=== PATIENT | male | born 1955 | race Caucasian/White ===

== ENCOUNTER 2016-10-04 10:52 | Emergency (ER) | payer MEDICAID ==
[~2016-10-04] VITALS: Ht 175.3 cm; Wt 90.7 kg
[~2016-10-04 10:52] MED LIST: ALBUTEROL2 PUFFS/17 IN; AMLO5TAB PO; AMLODIPINE BES10 MG PO; AZITHROMYCIN250 MG PO; BENTYL20 MG PO; CARVEDILOL 25MG25 MG PO; CHEWABLE ASPIRI81 MG PO; CLINDAMYCIN HC300 MG PO; DIABETA2.5 M1 PO; DOXYCYCLINE100 M2 PO; FISH OIL1000 MG PO; FLUOXETINE 10MG10 MG PO; GABAPENTIN 600600 MG PO; HABITROL21 MG/24 H TD; HUMULIN 70/30 PE3 ML SC; HYDROCHLOROTH12.5 M1 PO; HYDROCHLOROTHIA25 M1 PO; HYDROCODONE-APA1 TA1 PO; HYDROCODONE1 TABLET PO; HYDROXYZINE HCL25 M1 PO; IBUPROFEN 600M600 MG PO; JANUMET 500 MG-1 TAB; LANSOPRAZOLE30 MG PO; LASIX 40MG. TAB40 MG PO; LISINOPRIL 10MG10 MG PO; LISINOPRIL 20MG20 MG PO; LORATADINE 10MG10 M1; LORTAB 5/500 501 TAB PO; LORTAB 500 MG-11 TAB PO; LOSARTAN POTASS50 MG PO; LYRICA25 MG; METFORMIN 500M500 MG PO; METOPROLOL TAR100 MG PO; MULTIVITAMIN1 TA1 PO; NIFEDIPINE XL 330 MG PO; OMEPRAZOLE40 MG PO; OMNICEF 300 MG300 MG PO; PREDNISONE 20MG20 MG PO; VERAPAMIL HCL120 M1 PO; VERAPAMIL HCL40 MG PO; VICODIN 5/500 T1 TAB PO; VOLTAREN75 MG PO; WALK1 XX; Zithromax500 MG PO; [UNRECOGNIZED DRUG - OTHER]; [UNRECOGNIZED DRUG - OTHER]
[2016-10-04] MEDS ORDERED: CETIRIZINE HCL10 MG PO (11:02)
[2016-10-04] MEDS ORDERED: HYDRALAZINE HCL25 M1 PO (11:02)
[2016-10-04] MEDS ORDERED: TAMSULOSIN HYD0.4 MG PO (11:02)
[2016-10-04] MEDS ORDERED: RANITIDINE HCL150 MG PO (11:02)
[2016-10-04] MEDS ORDERED: VERAPAMIL SR 2240 MG PO (11:03)
[2016-10-04 11:27] LABS: LYMPH % 25.7 % (10-50)
--- NOTE | 2016-10-04 11:38 | Emergency Room Report ---
History of Present Illness Time Seen by 1100 Presenting Problem in Triage Pt arrived:Walked Presenting Problem:PT C/O PAIN IN THE LOWER EXTREMITIES WITH COUGH AND SHARP PAINS WHEN HE COUGHS FOR A COUPLE OF WEEKS Onset of symptoms date/time:/ or onset unknown for:MEDICAL HX UNKNOWN Treatment Prior to Arrival: [employer] Provided by: Sepsis Risk Assessment: Temp: 98.7 B/P: 199/110 MAP: 139 Pulse: 82 Resp: 16 Recent fever? N Clinical Suspician of Infection? N Mental Status: 1 - Regular (Normal Baseline) Sepsis Risk:Low Sepsis Risk Have you (or family members/close friends) recently traveled outside the [place]? N If Yes, where/when: Have you had exposure to infectious disease within the past month? N TB? Other? Specify: Patient reports productive cough the last few days, feeling "hot". Also has chronic neuropathy with "pins and needles" sensation to legs and feet at night, already evaluated by foot and ankle clinic for this with no calf pain or swelling. No SOB today. Source patient, RN notes reviewed, family ALLERGIES Coded Allergies: Sulfa (Sulfonamide Antibiotics) (09/19/15) Home Medications Active Scripts LISINOPRIL (Lisinopril) 20 MG PO BID #60 TAB Prov: 09/19/15 Device (Walker, Standard) 1 UNIT XX UD #1 Prov: 09/19/15 Reported Medications Aspirin (Aspirin, Chewable) 81 MG PO DAILY NIFEDIPINE (Nifedipine ER) 30 MG PO BID Omeprazole (Omeprazole 40MG) 40 MG PO DAILY CETIRIZINE HCL (Cetirizine 10MG) 10 MG PO DAILY Hydralazine Hcl (Hydralazine 25MG Tab) 25 MG PO BID TAMSULOSIN HCL (Tamsulosin 0.4MG) 0.4 MG PO QHS Ranitidine Hcl (Ranitidine 150MG) 150 MG PO BID VERAPAMIL HCL (Verapamil ER) 240 MG PO DAILY Metoprolol Tartrate (Metoprolol 100MG) 100 MG PO BID Fluoxetine Hcl (Fluoxetine 10MG) 10 MG PO DAILY History Medical History General Angina: No NC: No Hypertension? Yes Hyperlipidemia? Yes CHF? No DVT? No PE? No COPD? Yes Asthma? No Anemia? No GERD? No Gastric ulcers? No GI Bleed? No Hernia? No Thyroid Problems? No Hypothyroidism? No CVA? No Seizures? No Diabetes? Yes Insulin Dependent: No Insulin Pump: No Home FSBS? No End Stage Renal Disease? No UTI? No Stones? No BPH? No GB Disease: Yes Nephritic Syndrome? No Asplenia? No Hepatitis? Yes Sickle Cell Disease? No Arthritis? No Migraines? No Cataracts? No Glaucoma? No MRSA? No HIV? No TB? No Depression? Yes Cancer? No More? No Additional hx: schizophrenia, Hepatitic C, past drug use, peripheral neuropathy, PVD Immunization Hx DT/Tetanus 1-4 Years Ago Flu [id number] Pneumonia Received In Past Surgical Hx Previous Surgery?Y Appendix Eye Procedures Oral Surgery NOSE SKIN ABSCESS PACEMAKER INSERTION Family History Family Hx Diabetes No CAD No Hypertension No Hyperlipidemia No Cancer No TB No Social History Smoking Hx Smoker: Current Every Day Smoker Tobacco: Yes Type Cigarettes Packs/day 1 1/2 - 2 Packs Alcohol Alcohol: No Review of Systems All Other Systems Reviewed and Negative Cardiovascular see HPI Psychiatric/Neurological no symptoms reported, pre-existing deficit Physical Exam Vital Signs Vital Signs Date Time Temp Pulse Resp B/P Pulse O2 O2 Flow FiO2 Ox Delivery Rate 10/04 1223 69 16 223/118 98 10/04 1147 70 16 224/118 98 10/04 1055 98.7 82 16 199/110 92 General Appearance normal appearance, WD/WN, no apparent distress Eye Exam - bilateral eye normal exam, bilateral eye PERRL, bilateral eye EOMI Neck normal inspection, non-tender, supple, full range of motion Respiratory Status Yes: trachea midline, chest symmetrical, non tender chest, productive cough. No : respiratory distress, tender on palpation, use of accessory muscles, pain on inspiration, pain on expiration, non productive cough. Lung Sounds bilateral: normal breath sounds, lungs clear, wheezing (very mild, end exp). left: wheezing (very mild, end exp). right: wheezing (very mild, end exp). Cardiovascular normal exam, regular rate/rhythm, no peripheral edema, no gallop, no JVD, no murmur, no rub, normal peripheral pulses Gastrointestinal normal bowel sounds, normal exam, non tender, soft, no organomegaly, no guarding, no rebound Extremities non-tender, normal range of motion, normal inspection, normal capillary refill, no calf tenderness (peripheral neuropathy) Neurologic alert, normal exam (peripheral neuropathy baseline), no motor/sensory deficits Glascow Coma Scale Glascow Coma Scale Response Value EYE response: 4 Spontaneously 4 MOTOR response: 6 OBEYS 6 VERBAL response: 5 Oriented & Converses 5 Total 15 Skin intact, normal color, warm/dry Lymphatic no adenopathy Medical Decision Making LABS/Meds/Orders Pt receiving controlled substance in ED? No Results/Orders Laboratory Tests 10/04/16 1110: Lactic Acid 0.6 10/04/16 1110: Sodium 134 L, Potassium 4.2, Chloride 102, Carbon Dioxide 28, BUN 27 H, Creatinine 2.2 H, Estimated Creat Clear 45 L, Estimated GFR (MDRD) 31, Glucose 150 H, Calcium 8.4 L, Total Bilirubin 0.4, AST 38 H, ALT 48, Alkaline Phosphatase 100, Creatine Kinase 123, CK-MB (CK-2) Rel Index 1.6, CK and CKMB Interp 2.0, Troponin I < 0.02, Total Protein 7.1, Albumin 2.6 L, Globulin 4.5 H, Albumin/Globulin Ratio 0.6 L, WBC 7.7, RBC 4.11 L, Hgb 13.0 L, Hct 36.7 L , MCV 89.5, RDW 13.7, Plt Count 155, MPV 10.0, Gran % 63.2, Gran # 4.8, Lymphocytes % 25.7, Monocytes % 6.8, Eosinophils % 3.5, Basophils % 0.8, Lymphocytes # 2.0, Monocytes # 0.5, Eosinophils # 0.3, Basophils # 0.1, PUBS MCHC 35.4, MCH 31.7 H Current Medication Orders Sig/Josué Start time Last Medication Dose Route Stop Time Status Admin Sodium Chloride 10 ML PRN PRN 10/04 1115 AC IV 10/05 1106 Orders Procedure Date/time Status ELECTROCARDIOGRAM REQUEST 10/04 1201 Active CHEST(2 VIEWS-NOT PORTABLE) 10/04 1106 Active IV SALINE LOCK 10/04 1106 Active CULTURE, BLOOD 10/04 1106 Active LACTIC ACID 10/04 110 Complete CBC WITH AUTO DIFF 10/04 110 Complete CARDIAC ENZYMES 10/04 110 Complete CHEM 12 PROFILE 10/04 110 Complete 12 LEAD EKG-ISIDRO (INITIAL) 10/04 UNK Active CM/EKG CM/EKG EKG rate (70 paced ventricular rhythm), NSR, rhythm, no ectopy, compared w/( date of old), on prior on 02/11/[address] depression than today and also had prolonged QTc at that time XRAY/CT/US XRAY/CT/US XRAY chest XR interpretation by reviewed by me Xray Results normal/NAD (no change from 09/07/16; PM), no infiltrates, normal lung inflation juni Departure Departure Time of Disposition 1233 Disposition DC Home or Self Care(routine) Clinical Impression Primary Impression: Cough Condition STABLE Referrals Florencio Sheridan MD (Family) Patient Instructions Cough Additional Instructions Rx medrol dose pack, see Dr Sheridan, one to two days Discharge Counseling Counseled pt/family regarding diagnosis, test results, medications/RX, home care, follow up needs Prescriptions Current Visit Scripts Methylprednisolone (Medrol Dose Atul) 4 MG PO UD #1 ATUL TAKE DIRECTED ON PACKAGING ED Critical Care Critical Care No at 1234
[2016-10-04 11:54] LABS: BUN 27 mg/dL (7-18)
[2016-10-04 11:55] LABS: GFR (ESTIMATED) 31 ML/MIN (>60)
[2016-10-04] MEDS ORDERED: MEDROL 4MG. DOSE4 MG PO (12:34)
[2016-10-04 12:40] VITALS: BP 190/95
--- NOTE | 2016-10-04 17:26 | RADIOLOGY REPORT PS360 ---
CHEST(2 VIEWS-NOT PORTABLE) COMPARISON: PA and lateral chest 09/07/2016 HISTORY: Cough and chest pain TECHNIQUE: PA and lateral chest FINDINGS: The lung singer are well expanded and appear clear of infiltrate. There is mild aortic tortuosity but no cardiomegaly and the pulmonary vascularity is normal. There is no pleural fluid. The cardiac pacemaker and dual chamber electrodes are again noted with electrodes in good position. IMPRESSION: Nonacute chest findings
== END 2016-10-04 12:41 | disposition home or self-care (01) ==
LOC: ER 10:52
PROVIDERS: Emergency Medicine
DX: R05 Cough (principal); J44.9 Chronic obstructive pulmonary disease, unspecified; J45.909 Unspecified asthma, uncomplicated; Z72.0 Tobacco use; I10 Essential (primary) hypertension; E11.9 Type 2 diabetes mellitus without complications; I73.9 Peripheral vascular disease, unspecified; K71.6 Toxic liver disease with hepatitis, not elsewhere classified; Z95.0 Presence of cardiac pacemaker